=== PATIENT | male | born 1970 | race Caucasian/White ===

== ENCOUNTER 2017-01-08 14:03 | Emergency (ER) | payer OTHER ==
[2017-01-08] MEDS ORDERED: Lidocaine 1% 10 MG/ML - 20 ML VIAL SUBCUT ONE (14:10)
[2017-01-08 14:50] VITALS: RESP 16; TEMP 97.4
--- NOTE | 2017-01-09 00:19 | PDOC ---
Skin Rash/Insect/Abscess HPI - General Chief Complaint: Allergic Reaction/Anaphylaxis Stated Complaint: abscess of forehead Date Seen by Provider: 01/08/17 Time Seen by Provider: 14:06 Source: POSITIVE: Patient Exam Limitations: POSITIVE: No limitations Nurse's Notes Reviewed & Considered: Yes - History of Present Illness Initial Comments: The patient is a 46-year-old male. Approximately 4 days [employer] he noticed an erythematous raised lesion chest right of his midforehead. He has subsequently developed some swelling below his eyes. Patient was concerned that he might have gotten bitten by an insect or spider, although he cannot recall having been done so. He has no difficulty breathing. No rashes other than the above abscess. No fevers or chills. Have you received a tetanus shot in the past 10 years?: No Body Location Affected: REPORTS: Head, Face (Forehead) Timing: REPORTS: Gradual, Getting Worse Duration: >24 hours (4 days) Severity: Moderate Quality: REPORTS: "Pain" (Locally tender) Identified Causes: REPORTS: No Suspected Etiology: REPORTS: Spider Bite, Insect Bite Similar Symptoms Previously: No Recent Care Received: REPORTS: Denies Any Prior Injuries Related to Current Complaint?: No - Patient Home Medications Home Medications: Home Medications Brimonidine Tartrate/Timolol [Combigan Eye Drops] 1 drop OP Q12H drop 01/12/15 Latanoprost [Xalatan] 1 drop OP QD drop 01/12/15 Citalopram Hydrobromide [Celexa] 20 mg ORAL QD #30 tab 02/18/16 Gemfibrozil [Lopid] 1 tab ORAL BID #60 tab 02/18/16 Losartan Potassium [Cozaar] 50 mg ORAL QD #30 tab 02/18/16 Simvastatin 20 mg PO DAILY #30 tab 02/18/16 Brinzolamide [Azopt] 1 drop OP QD drop 10/27/16 Sulfameth/Trimeth 800/160 Tab [Bactrim DS 800/160 Tab] 1 each PO Q12H #14 tablet 01/08/17 - Patient Allergies Allergies/Adverse Reactions: Allergies Allergy/AdvReac Type Severity Reaction Status Date / Time No Known Allergies Allergy Verified 01/08/17 14:10 Past Medical History - heen HEENT History: Other (please comment) Additional HEENT History: TRAUMATIC RIGHT EYE INJURY, WEARS GLASSES Cardiovascular History: Hypertension, Hyperlipidemia Respiratory History: Denies History Gastrointestinal History: Denies History Genitourinary History: Denies History Endocrine History: Denies History Musculoskeletal History: Denies History Prosthesis or Implant: No Neurological History: Denies History Blood Disorders: Denies History Psychiatric History: Depression History of Sexually Transmitted Diseases: No Male Reproductive History: Denies History Cancer History: Denies History In Past Year Been Physically Harmed or Verbally Threatened: No (PER PATIENT) History of MDRO: No History of Other Communicable Diseases: No Tobacco Use: Never Smoker Alcohol Use: Rarely Substance Use Type: None Previous Surgical History: Yes Type / Date of Surgery: RIGHT EYE x7 DUE TO TRAUMATIC INJURY Anesthesia Reactions: No Malignant Hyperthermia: No Family History of Malignant Hyperthermia: No Significant Family History: No pertinent family hx Past Medical History Reviewed: Reviewed - No Changes ROS - Limitations ROS Limitations: No Limitations Constitution: REPORTS: Denies Symptoms Cardiovascular: REPORTS: Denies Cardiac Symptoms Respiratory: REPORTS: Denies Resp Symptoms Neurological: REPORTS: Denies Neuro Symptoms Gastrointestinal: REPORTS: Denies GI Symptoms Endocrine: REPORTS: Denies Symptoms Musculoskeletal: REPORTS: Denies MS Symptoms Genitourinary: REPORTS: Denies Symptoms Eyes: REPORTS: Denies Symptoms ENT: REPORTS: Denies Symptoms Skin: REPORTS: Other (Abscess forehead as above; see diagram) Lympathic: REPORTS: Denies Lympathic Symptoms Immunologic: POSITIVE: Denies Symptoms Psychiatric: POSITIVE: Denies Psych Symptoms Skin Rash/Insect/Abscess Exam - General Appearance General Appearance: REPORTS: Alert, Cooperative, No Acute Distress, No Evidence of Trauma - Skin Skin: REPORTS: Abscess (As above; see diagram), Pointing, Fluctuant Skin Location: REPORTS: Face (Forehead) Skin Character: REPORTS: Asymmetric Skin Symptoms: REPORTS: Warmth - HEENT HEENT: POSITIVE: Eyes Inspection Nml, Ears Inspection Nml, Nose Inspection Nml, Oral/Dental Inspect. Nml, Pharynx Inspect. Nml, PERRL, EOMI. 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, Motor Normal, Sensation Normal, 5, 6 Procedures - Incision and Drainage Site: just right of mid forehead Skin Prep: Sterile Field Maintained, Sterile Drapes Applied, Sterile Dressing Applied, Shur-Clens Local Anesthesia Used - Indicate Amt Used in Comment: Lidocaine 1%: Yes Blade Size: 15 I & D Procedure: sterile drapes applied, sterile dressing applied, gauze wick placed I&D Treatment: Purulent Drainage, Small Amount, Probed to Brk Loculations, Packed w/ Gauze, Obtained Cultures Images - Head Head: 1 - Subcutaneous abscess Skin Rash/Abscess Progress - Patient's Progress Pain Medication Addressed: POSITIVE: Yes (Recommended Advil or Tylenol) School/Work Release Addressed: POSITIVE: Not Applicable Re-Examine Time:: 14:27 Re-Examine Comment: Abscess incised and drained and quarter inch Nu Gauze packing placed Status: POSITIVE: Improved, Re-Examined (Abscess incision and drainage complete) - Consult Counseled: POSITIVE: Patient, Family, RE: DX, RE: Need for F/U Patient Care Time - Estimated PCT Patient Care Time (In Minutes): 20 Vital Signs - VS Reviewed Vital Signs Reviewed: Yes Discharge Clinical Impression: Abscess of face Discharge Disposition: Discharged to Home Condition: Stable Prescriptions / Orders: Sulfameth/Trimeth 800/160 Tab [Bactrim DS 800/160 Tab] 1 each PO Q12H #14 tablet Patient Instructions Given at Discharge: Abscess (ED) Additional Instructions: The abscess on your forehead was incised and drained. I placed in a small packing. Return in 48 hours for packing change and reevaluation. Bactrim DS, one every 12 hours. Return anytime if condition worsens. Follow Up With: VARSHA ARCE [Primary Care Provider] - (Instructions as above. Follow-up with your primary care provider. Return anytime if condition worsens.)
== END 2017-01-08 14:44 | disposition home or self-care (01) ==
LOC: ER 14:03
DX: L02.01 Cutaneous abscess of face (principal)
CPT/HCPCS: 10060; 87070; 87077; 87186; 87205; 99282; J2001

== ENCOUNTER → 2017-03-29 | Outpatient (CLI) | payer OTHER ==
[2017-03-29 12:39] LABS: BASOPHILS # (AUTO) 0.02 10*3/UL; BASOPHILS % (AUTO) 0.3 % (0-1); EOSINOPHILS # (AUTO) 0.18 10*3/UL; EOSINOPHILS % (AUTO) 2.9 % (0-8); HEMATOCRIT 44.8 % (42.0-52.0); HEMOGLOBIN 15.4 g/dL (14.0-18.0); LYMPHOCYTES # (AUTO) 1.67 10*3/uL; MEAN CORPUSCULAR HEMOGLOBIN 31.4 PG (27-31); MEAN CORPUSCULAR HGB CONC 34.4 g/dL (33-37); MEAN CORPUSCULAR VOLUME 91.2 FL (80-90); MEAN PLATELET VOLUME 8.7 FL (7.4-12.2); MONOCYTES # (AUTO) 0.46 10*3/UL (0.3-0.8); MONOCYTES % (AUTO) 7.5 % (5-15); NEUTROPHILS # (AUTO) 3.81 10*3/UL; NEUTROPHILS % (AUTO) 61.9 % (50-80); RED BLOOD COUNT 4.91 10^6/uL (4.70-6.10)
[2017-03-29 12:41] LABS: PLATELET MORPHOLOGY COMMENT NORMAL MORPHOLOGY (NORM); RBC MORPHOLOGY COMMENT NORMAL MORPHOLOGY (NORM); WBC MORPHOLOGY COMMENT NORMAL MORPHOLOGY (NORM)
[2017-03-29 12:45] LABS: BUN/CREATININE RATIO 12.3 (6-20); CALCIUM 9.7 mg/dL (8.7-10.7); CHOL/HDL RATIO 3.34 RATIO (0-4.0); LDL CHOLESTEROL,CALCULATED 85.4 mg/dL; SERUM ALBUMIN 4.5 g/dL (3.5-4.8)
[2017-03-29 14:18] LABS: HEMOGLOBIN A1C 4.96 % (4.2-6.0)
== END ==
LOC: MOB LAB 10:20
PROVIDERS: ATTEND Family Medicine
DX: Z00.00 Encounter for general adult medical examination without abnormal findings (principal); Z12.5 Encounter for screening for malignant neoplasm of prostate
CPT/HCPCS: 36415; 80053; 80061; 82306; 83036; 84443; 85025; G0103